=== PATIENT | female | born 1990 | race Caucasian/White ===

== ENCOUNTER 2024-10-09 15:31 | Emergency (ER) | payer MEDICAID, SELFPAY ==
[2024-10-09 15:35] VITALS: BMI 20.9
[2024-10-09 15:56] VITALS: BP 125/74; RESP 19; TEMP 37.7; O2SAT 98
--- NOTE | 2024-10-09 16:02 | PD.EDWOUND ---
ED Wound/Laceration-RME/HPI General Chief Complaint: Wound/Laceration Stated Complaint: LAC TO LEFT THUMB Time Seen by Provider: 10/09/24 15:54 Source: patient Arrival date/time: 10/09/24 15:31 Is a 34-year-old female presents to the emergency department with complaints of left thumb laceration with a skill saw. Patient lacerated the distal tip of her thumb. Patient reports she is updated with her tetanus. Denies any other injuries. Full range of motion of thumb. Limitations: no limitations Related Data Previous Rx's ?Medication ?Instructions ?Recorded cephalexin 500 mg capsule 500 mg PO TID 5 days #15 caps 10/09/24 Allergies Allergy/AdvReac Type Severity Reaction Status Date / Time No Known Allergies Allergy Verified 11/12/23 11:22 Review of Systems Review of Systems Systems Reviewed: All systems reviewed, normal except as documented Narrative Review of Systems: Gen: No fever, no chills, no weight loss EYES: No discharge, no visual changes, no pain HEENT: No ear pain, no congestion, no sore throat PULM: No shortness of breath, no cough, no congestion CV: No chest pain, no dyspnea on exertion, no palpitations GI: No nausea, no vomiting, no diarrhea, no pain, no constipation : No frequency, no urgency,? no dysuria Musc/skel: left thumb pain, no back pain Skin: No rash? ED Exam General Limitations: Present no limitations General appearance: Present alert and in no apparent distress Head Head exam: Present atraumatic Eye Eye exam: Present normal appearance, PERRL and EOMI ENT ENT exam: Present normal exam, normal oropharynx and mucous membranes moist Neck Neck exam: Present normal inspection, full ROM and trachea midline Chest Chest inspection: Present normal inspection and symmetric chest wall rise Respiratory Respiratory exam: Present normal lung sounds bilaterally Cardiovascular Cardiovascular exam: Present regular rate, normal rhythm and normal heart sounds Abdominal Exam Abdominal exam: Present soft and normal bowel sounds Extremities Exam Extremities exam: Present full ROM Expanded Upper Extremity Exam Hand L/R front image:  1. avulsion (left distal thumb) Back Exam Back exam: Present normal inspection and full ROM Neurological Exam Neurological exam: Present alert, oriented X3 and CN II-XII intact Psychiatric Psychiatric exam: Present normal affect and normal mood Skin Skin exam: Present warm, dry, intact and normal color Course Quality Measures none Vital Signs Vital signs: Vital Signs Temperature 99.8 F 10/09/24 15:56 Respiratory Rate 19 10/09/24 15:56 Blood Pressure 125/74 10/09/24 15:56 Pulse Oximetry (%) 98 10/09/24 15:56 Oxygen Delivery Method Room Air 10/09/24 15:56 Procedures -ED Laceration Laceration 1: Site: other (Hand left thumb) Side (If applicable): left Size (cm): 1 Description: flap Depth: simple, single layer Local Anesthetic: lidocaine 1% Amount of anesthesia used (mL): 2 Pre-repair: wound explored and irrigated extensively Skin layer closed with: nylon Size (cm): 4-0 Number of sutures: 6 Wound / Laceration MDM Narrative MDM Narrative:: Patient had a laceration to distal tip thumb which was cleansed thoroughly and repaired with 6 sutures. Patient tolerated procedure well. Patient did not want a x-ray or TD. Patient advised to follow-up with your PCP return to the emergency department this any worsening symptoms any condition Patient data External records reviewed:: [facility] previous records Clinical information provided by:: patient Social determinants that could affect healthcare access:: none Patient has the following chronic illnesses:: None How is presenting disease/condition affected by chronic disease/condition?: no chronic disease Evaluation data The following diagnostics were reviewed and interpreted by me:: other (specify) Lab and/or radiology exams considered but not ordered:: Refused Interpretation Summary: Not applicable Medications / Prescriptions Medications or Prescriptions considered but not ordered:: None Medication administrations:: None Consultations Consultation(s) initiated? (list below): No Diagnosis Wound Differential Diagnosis: laceration, abscess and avulsion of skin Most likely diagnosis given after review of the tests above:: distal tip left thumb. laceration repaired Admission Indicated Admission indicated?: not indicated Admission Request Was there a request for admission?: No Disposition Plan Disposition Plan: Discharge Discharge Attestation Discharge Attestation: The patient and all family members were given an opportunity to ask questions and understood the discharge instructions. Discharge instructions specifically effects, indications for sooner follow up or return to the emergency department, and the expected course of current diagnosis. Patient condition: Stable Discharge Plan Plan Patient Disposition: HOME (Self Care) Patient condition on transfer: Stable Prescriptions/Referrals Prescriptions/Med Rec: New cephalexin 500 mg capsule 500 mg PO TID 5 Days Qty: 15 0RF Problem List Clinical Impression: Laceration Patient/Caregiver Discharge Instructions Discharge Activity: activity as tolerated Additional Instructions: Please follow up with Primary Doctor in 7-10 day for suture removal. Please return to ER if theres is any sign of infection. Please keep wound clean and dry. Print Language: Syriac Stand Alone Forms: Jeannine Award Info., Patient Portal Info Letter PA/RIPRAP PLACING SUPERVISOR Supervising Physician PA/RIPRAP PLACING SUPERVISOR Supervising Physician: dr. Haines
== END 2024-10-09 16:37 | disposition home or self-care (01) ==
PROVIDERS: Emergency Provider Emergency Medicine
DX: S61.012A Laceration without foreign body of left thumb without damage to nail, initial encounter (principal); W31.2XXA Contact with powered woodworking and forming machines, initial encounter
CPT/HCPCS: 12001; 99283

== ENCOUNTER 2024-10-18 10:35 | Outpatient (AMB) | payer MEDICAID, SELFPAY ==
[2024-10-18 10:45] VITALS: BP 133/87; PULSE 74; RESP 18; TEMP 36.6; O2SAT 99; BMI 20.7
--- NOTE | 2024-10-18 10:45 | PD.GSCLVISIT ---
Vital Signs - [facility] 10/18/24 10:45 Height 1.68 m Height Method Stated Weight 58.287 kg Weight Measurement Method Standing Scale BMI 20.7 BP 133/87 H Blood Pressure Source Automatic Cuff Blood Pressure Location Left Upper Arm Position Sitting Respiration 18 Pulse 74 Pulse Source Monitor Temp 97.8 F Temp Source Temporal Artery Scan Pulse Oximetry (%) 99 Oxygen Delivery Method Room Air Med/Allergies Allergies & Medications Allergies No Known Allergies Allergy (Verified 10/18/24 10:46) Medication Reconciliation No Known Home Medications 10/18/24 [History Confirmed 10/18/24] MA Intake Visit Data Collection New Patient or Established: Established Patient (seen at [facility] within 3 years) Seen by Clinical Staff ONLY (RN/MA): No Reason for Visit:: SUTURE REMOVAL Pain Present Currently: No Automotive Finance Manager Required: No PCP or OBGYN visit in last 3 months: Yes Hx Now: No Do You Feel Safe at Home: Yes Authorities Contacted: N/A Smoking Status Smoking Status: Never smoker Immunization / Flu Flu Vaccine in the Last 12 Months: No Flu Vaccine Exclusion Criteria: No Exclusion Criteria Past Medical History Social History SMOKING STATUS: Smoking status: Never smoker HPI HPI Narrative 34F presenting for suture removal. Pt suffered a left thumb injury requiring sutures on 10/09. She states she is feeling well overall with no pain, no numbness or tingling ROS Review of Systems Systems Reviewed: All systems reviewed, normal except as documented Objective/Exam General General Appearance: alert, cooperative and well groomed Resp Respiratory exam: Absent respiratory distress Extremities Extremities exam: Present other (left thumb with ecchymotic skin at lateral distal aspect; sutures removed, no bleeding, no fluctuance or tenderness) Assessment & Plan Diagnosis / Problem List (1) Thumb laceration: Status: Acute Assessment & Plan: 34F with left thumb laceration presenting for suture removal, recovering well overall Office Procedures GNS Level of Care Nursing/Assessment Patient Status: Established Patient Nursing Assessment/Reassesment: Medication Reconciliation, Update PMH in EMR and Vital Signs Coordination of Care: Complex Care and Chronic Disease 1-5, Consent,records obtained, informed consent, Education Simp Pt/Fam, Results/Orders obtained and Staff clarify orders Established Patient Charge Established Patient Point Assignment: 90 Established Patient Point Charge: EP Level 3 (80-115) Patient Portal Questionaires Social History Tobacco History Smoking Status: Never smoker Domestic Abuse History Do You Feel Safe at Home: Yes Review of Systems Report any current symptoms Only answer those that you have currently: Past Medical History Past Medical History Have you ever been diagnosed with any of the following:
== END 2024-10-18 10:50 | disposition home or self-care (01) ==
LOC: HODSRG 10:35
PROVIDERS: Supervising Provider Surgery; Visit Provider Surgery
DX: S61.012D Laceration without foreign body of left thumb without damage to nail, subsequent encounter (principal); X58.XXXD Exposure to other specified factors, subsequent encounter
CPT/HCPCS: 99213; G0463